=== PATIENT | female | born 1975 | race Caucasian/White ===

== ENCOUNTER 2024-01-29 00:43 | Emergency (ER) | payer OTHER, SELFPAY ==
--- NOTE | ~2024-01-29 | XR_ITS ---
Right foot Technique: AP, oblique, and lateral views were obtained. Clinical History: Pain and swelling Findings: No acute fracture or dislocation is seen. Osseous alignment is anatomic. Joint spaces are p reserved without erosive or degenerative change. Probable minimal dorsal soft tissue swelling. Impression: No osseous or articular abnormality. Minimal dorsal soft tissue swelling. Reviewed, dictated and finalized at location . Impression: No osseous or articular abnormality. Minimal dorsal soft tissue swelling.
[2024-01-29 00:48] VITALS: BP 137/98; PULSE 98; RESP 20; TEMP 36.1; O2SAT 100
[2024-01-29 01:05] VITALS: BP 139/84; PULSE 89; RESP 16; O2SAT 96
--- NOTE | 2024-01-29 01:34 | ED.LOWEXIN ---
HPI - Extremity Injury (Lower) General Chief Complaint: Extremity Injury, Lower Stated Complaint: Right foot pain, swelling Time Seen by Provider: 01/29/24 01:01 Source: patient Mode of arrival: ambulatory Limitations: no limitations History of Present Illness HPI Narrative: Patient is a 48-year-old female who presents the ED with report of right foot pain. Patient reports she has had pain, redness, mild swelling to her right dorsal foot, near the area of her 4th and 5th toes for the last 3 days after her dog ran across their floor and stepped on her bare foot, scratching her foot with its paws/nails. States symptoms have been worsening. She has tried taking ibuprofen without much improvement. Last took ibuprofen Monday night. Denies fevers. Denies drainage. She has been ambulatory, but has some discomfort with this. Related Data Allergies Allergy/AdvReac Type Severity Reaction Status Date / Time No Known Allergies Allergy Verified 01/29/24 00:50 Review of Systems Review of Systems: CONSTITUTIONAL: Denies fever, chills, or sweats. MUSCULOSKELETAL: See HPI SKIN: See HPI All systems reviewed & are unremarkable except as noted in HPI and below Exam Narrative: GENERAL: Well appearing, morbidly obese with BMI of 43.8, non-toxic, in no acute distress. HEAD: Normocephalic, atraumatic. RESPIRATORY: Airway patent, respirations nonlabored. CARDIOVASCULAR: Regular rate and rhythm without murmurs, rubs, or gallops. Pedal pulses 2+ and easily palpable bilaterally. MUSCULOSKELETAL: Moves all extremities. No gross deformities. Mild swelling noted to right dorsal foot. Small superficial laceration/fissure to webspace between 4th and 5th toes, no active bleeding. No drainage. Mild surrounding erythema and warmth, focal tenderness to palpation over dorsal distal lateral foot. Sensation intact. Capillary refill intact. SKIN: Warm, dry, normal color. NEURO: A&O X3. Speech clear PSYCHIATRIC: Appropriate mood and affect. Normal interaction. Course Vital Signs Vital signs: Vital Signs Temperature 97.0 F L 01/29/24 00:48 Pulse Rate 98 01/29/24 00:48 Respiratory Rate 20 01/29/24 00:48 Blood Pressure 137/98 H 01/29/24 00:48 Pulse Oximetry 100 01/29/24 00:48 Oxygen Delivery Room Air 01/29/24 00:48 Temperature 97.0 F L 01/29/24 00:48 Pulse Rate 92 01/29/24 02:20 Respiratory Rate 15 01/29/24 02:20 Blood Pressure 132/75 01/29/24 02:20 Pulse Oximetry 99 01/29/24 02:20 Oxygen Delivery Room Air 01/29/24 00:48 MDM - Extremity Injury (Lower) MDM Narrative Medical decision making narrative: X-ray interpreted by myself without evidence for osseous abnormality. Will treat for cellulitis. Will cover with doxycycline in addition to Augmentin given involvement of animal scratch. Patient given wound care instructions, discussed rice therapy, recommended close follow-up with PCP for further evaluation. Vital signs are stable. No evidence of systemic infection. Given return precautions. Medical Records Attestation: I reviewed the patient's medical records. Imaging Data Attestation: I personally reviewed and interpreted this imaging study as follows: My impression: XR R Foot: No acute osseous abnormality. Discharge Plan Discharge Clinical Impression: Cellulitis of right foot, Dog scratch Patient Disposition: Home, Self-Care Condition: Stable Instructions: Antibiotic Form, Animal Bite (ED), Cellulitis (ED), P.R.I.C.E. Treatment (ED) Additional Instructions: Take both antibiotics as prescribed. Recommend frequent warm compresses or warm soaks to right foot, keeping right foot elevated. Continue Tylenol and ibuprofen as needed for pain. Follow-up with your primary care doctor for further evaluation and to ensure improvement of symptoms. Prescriptions: New doxycycline monohydrate 100 mg tablet 100 mg PO BID 7 Days Qty: 14 0RF amoxicillin-pot clavulanate 875-125 mg
[2024-01-29] MEDS: DOXYCYCLINE HYCLATE 100 MG TABLET PO (01:49)
[2024-01-29] MEDS: AMOXICILLIN/CLAVULANATE K 875-125 MG TAB 1 TABLET PO (01:49)
[2024-01-29] MEDS: KETOROLAC (*BKC) 60 MG/2 ML VIAL IM (01:50)
[2024-01-29 02:20] VITALS: BP 132/75; PULSE 92; RESP 15; O2SAT 99
== END 2024-01-29 02:21 | disposition home or self-care (01) ==
LOC: ANHED 02:12
PROVIDERS: Emergency Provider Physician Assistant
DX: L03.115 Cellulitis of right lower limb (principal); S90.811A Abrasion, right foot, initial encounter; W54.8XXA Other contact with dog, initial encounter
CPT/HCPCS: 73630; 96372; 99283; A9270; J1885